=== PATIENT | female | born 1980 | race Caucasian/White ===

== ENCOUNTER 2024-12-31 10:06 | Outpatient (AMB) | payer BC, SELFPAY ==
[2024-12-31 10:26] VITALS: BP 153/103; PULSE 93; RESP 16; TEMP 35.9; O2SAT 99
--- NOTE | 2024-12-31 10:26 | AMB.GYNCLNOT ---
Vital Signs 12/31/24 10:26 Weight 62.256 kg Weight Measurement Method Standing Scale BP 153/103 H Blood Pressure Source Automatic Cuff Blood Pressure Location Left Upper Arm Position Sitting Respiration 16 Pulse 93 Pulse Source Monitor Temp 96.7 F L Temp Source Oral Pulse Oximetry (%) 99 Oxygen Delivery Method Room Air Allergies/Home Meds Allergies & Medications Allergies No Known Allergies Allergy (Verified 12/31/24 10:27) Medication Reconciliation misoprostol 200 mcg tablet 400 mcg (2 x 200 mcg) sublingual .once 1 day #2 tabs 12/31/24 [Rx] Intake Visit Data Collection New Patient or Established: New Patient (never been to [facility]) Reason for Visit:: consult for Mirena IUD removal and insert Seen by Clinical Staff ONLY (RN/MA): No Labor Expediter Required: No Do You Feel Safe at Home: Yes Authorities Contacted: N/A PCP or OBGYN visit in last 3 months: Yes Hx Now: No Are you currently on any form of Control: Yes Pain Present Currently: No Pain Scale Used: Capone-Bernal/Numerical Pain scale:: 0 Smoking Status Smoking Status: Never smoker 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 1. Little interest or pleasure in doing things: not at all 2. Feeling down, depressed, or hopeless: not at all Total score: 0 PHQ-9 3. Trouble falling or staying asleep, or sleeping too much: Not at all 4. Feeling tired or having little energy: Not at all 5. Poor appetite or overeating: Not at all 6. Feeling bad about yourself - or that you are a failure or have let yourself or your family down: Not at all 7. Trouble concentrating on things, such as reading the newspaper or watching television: Not at all 8. Moving or speaking so slowly that other people could have noticed? - Or the opposite - being so fidgety or restless that you have been moving around a lot more than usual: not at all 9. Thoughts that you would be better off or of hurting yourself in some way: Not at all Total score: 0 If you checked off any problems, how difficult have these problems made it for you to do your work, take care of things at home, or get along with other people?: not difficult at all Source: Developed by Drs. Carlo Huggins, Stephy Wallace, Melquiades Ayers and colleagues, with an educational lacie from [employer]. Depression screen completed yes Social History Living Situation History Marital Status: Lives With: Family Housing: House Tobacco History Smoking Status: Never smoker Second Hand Smoke Exposure: No Alcohol History Alcohol Intake: Never Domestic Abuse History Do You Feel Safe at Home: Yes Past Medical History Past Medical History Have you ever been diagnosed with any of the following: History of Present Illness HPI Narrative This is a 44-year-old [place] that arrives to clinic today for IUD removal and insert consult. Patient reports menarche at 16 years old. LMP 12/16/24. She reports that usually.'s are every month and last about 5 days moderate in flow. Patient has a history of using Mirena IUD for the last 8 years. She has been happy with the control method and would like to have it replaced. She reports that the last year periods have become more frequent. She has had more midcycle spotting.. She in also complains of increased weight gain in the past year and feeling fatigued. Patient has been followed up with family practice at Dr. Dominguez's office and she recently saw her provider regarding the same symptoms. Patient's family practice provider suggested upping her Zoloft to 50 mg daily. And that seems to be starting to help with her fatigue. Patient reports that she smokes 4 cigarettes a day. Patient also reports daily alcohol use. Denies drug use. Patient has a history of fatigue. Denies chronic illness. Denies COMMUNITY YOUTH SECRETARY complaints at this time. Denies PAINS. Review of Systems Review of Systems Systems Reviewed: All systems reviewed, normal except as documented Exam General Limitations: no limitations General Appearance: alert, in no apparent distress, comfortable, cooperative, healthy appearing, well developed and well groomed Head Head exam: atraumatic, normocephalic and normal inspection Chest Chest inspection: Present normal inspection and symmetric chest wall rise Resp Respiratory exam: Present normal lung sounds bilaterally Card Cardiovascular exam: Present regular rate, normal rhythm and normal heart sounds Abdominal Abdominal exam: Present soft and normal bowel sounds Psych Psychiatric exam: Present normal affect and normal mood Assessment & Plan Diagnosis / Problem List (1) Encounter for IUD removal and reinsertion: Status: Acute Plan I discussed Mirena IUD its method and side effects. I discussed the effects of progesterone only methods on menstrual cycle. I also discussed that because the Mirena has been in for 8 years, that patient is more likely to be experiencing side effects from the Mirena. Since patient is happy with Mirena IUD she was scheduled for IUD removal and insert. Patient advised to take 400 of misoprostol sublingual 24 hours before procedure. Misoprostol was ordered to patient's pharmacy. I reviewed side effects of misoprostol with patient as well. Patient will take ibuprofen prior to insert. Additional Plan Follow Up: 2 Weeks (for mirena removal and insert) Office Procedures OB Clinic LOC & Office Proc's Nursing/Assessment Patient Status: Established Patient OB Clinic Nursing Assessment: BP Monitoring, Medication Reconciliation, Update PMH in EMR and Vital Signs OB Clinic Coordination of Care: Consent,records obtained, informed consent, Education Simp Pt/Fam, Lab and Imaging orders and Staff clarify orders Established Patient Charge Established Patient Point Assignment: 90 Established Patient Point Charge: EP Level 3 (80-115)
== END 2024-12-31 10:50 | disposition home or self-care (01) ==
LOC: HODSOBC 10:06
PROVIDERS: Supervising Provider Advanced Practice Midwife; Visit Provider Advanced Practice Midwife
DX: Z30.433 Encounter for removal and reinsertion of intrauterine contraceptive device (principal)
CPT/HCPCS: 99213; G0463

== ENCOUNTER 2025-01-26 08:41 | Outpatient (AMB) | payer BC, SELFPAY ==
--- NOTE | 2025-01-26 09:01 | AMB.GYNCLNOT ---
Vital Signs 01/26/25 09:07 Height 1.68 m Height Method Stated Weight 62.709 kg Weight Measurement Method Standing Scale BMI 22.3 BP 168/99 H Blood Pressure Source Automatic Cuff Blood Pressure Location Left Upper Arm Position Sitting Respiration 16 Pulse 84 Pulse Source Monitor Temp 98.2 F Temp Source Oral Pulse Oximetry (%) 95 Oxygen Delivery Method Room Air Allergies/Home Meds Allergies & Medications Allergies No Known Allergies Allergy (Verified 01/26/25 09:09) Medication Reconciliation No Known Home Medications 01/26/25 [History Confirmed 01/26/25] Intake Visit Data Collection New Patient or Established: Established Patient (seen at [facility] within 3 years) Reason for Visit:: IUD replacement after 8 years Seen by Clinical Staff ONLY (RN/MA): No Calculus Professor Required: No Do You Feel Safe at Home: Yes Authorities Contacted: N/A PCP or OBGYN visit in last 3 months: Yes Hx Now: No Are you currently on any form of Control: Yes Last menstrual period: 01/25/25 Pain Present Currently: No Pain Scale Used: Capone-Bernal/Numerical Pain scale:: 0 Smoking Status Smoking Status: Never smoker 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 1. Little interest or pleasure in doing things: not at all 2. Feeling down, depressed, or hopeless: not at all Total score: 0 PHQ-9 3. Trouble falling or staying asleep, or sleeping too much: Not at all 4. Feeling tired or having little energy: Not at all 5. Poor appetite or overeating: Not at all 6. Feeling bad about yourself - or that you are a failure or have let yourself or your family down: Not at all 7. Trouble concentrating on things, such as reading the newspaper or watching television: Not at all 8. Moving or speaking so slowly that other people could have noticed? - Or the opposite - being so fidgety or restless that you have been moving around a lot more than usual: not at all 9. Thoughts that you would be better off or of hurting yourself in some way: Not at all Total score: 0 Source: Developed by Drs. Carlo Huggins, Stephy Wallace, Melquiades Ayers and colleagues, with an educational lacie from [employer]. Depression screen completed yes Social History Living Situation History Marital Status: Lives With: Family Housing: House Tobacco History Smoking Status: Never smoker Second Hand Smoke Exposure: No Alcohol History Alcohol Intake: Never Domestic Abuse History Do You Feel Safe at Home: Yes Past Medical History Past Medical History Have you ever been diagnosed with any of the following: History of Present Illness HPI Narrative Vinita Bernal presents for IUD replacement. She has had her current IUD for approximately 8 years, which was placed at a clinic in [place] when she lived in the [facility]. The patient reports noticing changes in the last 2-[address] years, [address] Ramirez attributes to the hormones wearing off after 5 years. The patient was initially scheduled for the IUD replacement last week but did not start her menstrual cycle as expected. She was prescribed misoprostol to help loosen the cervix, which she took as directed. However, she reports that it never worked, though Dr. Ramirez reassures her that the medication should still be helpful for today's procedure. Vinita expresses some apprehension about the IUD replacement procedure but is proceeding with it. She denies any other specific complaints or symptoms related to her reproductive health. Surgical History - IUD insertion approximately 8 years ago Medications and Supplements - Misoprostol - Taken last week to loosen the cervix for IUD removal/insertion - IUD (Intrauterine Device) - Previous IUD in place for 7-8 years - Patient noticed changes in the last 2-3 years, likely due to hormones wearing off Social History - Occupation: Patient mentions going home to do chores after the appointment Review of Systems Genitourinary: Positive for cramping during IUD removal and insertion. Exam General General Appearance: alert, in no apparent distress and healthy appearing Head Head exam: atraumatic Neck Neck exam: Present normal inspection and trachea midline Chest Chest inspection: Present normal inspection and symmetric chest wall rise External exam: Present normal external exam; Absent tenderness Neuro Neurological exam: Present oriented X3 Psych Psychiatric exam: Present normal affect and normal mood Assessment & Plan Diagnosis / Problem List (1) Encounter for replacement of intrauterine contraceptive device: Status: Acute (2) Encounter for IUD removal and reinsertion: Status: Acute (3) General counseling and advice for contraceptive management: Status: Acute Plan Vinita Bernal, female patient, presenting for IUD replacement after 8 years with her previous device. Intrauterine Device (IUD) Replacement Assessment: Patient had an IUD inserted 8 years ago in [place]. She reports noticing changes in the last 2-3 years, likely due to hormonal effects wearing off after 5 years. Misoprostol was prescribed prior to the appointment to help loosen the cervix, which the patient took last week. The cervix appeared stenotic, but the misoprostol is expected to have helped break down the stenosis. Plan: - Removed old IUD - Inserted new IUD - Informed consent obtained (procedure steps explained to patient) - Left strings approximately 2 inches long - Advised patient to return in about a month if strings are bothersome for potential trimming - Observed minimal bleeding post-procedure, which was noted as normal - Instructed patient to rest for 5 minutes post-procedure before getting up - Offered Toradol injection for pain management (patient declined) - Follow-up in 5 minutes to check on patient's status Office Procedures OB Clinic LOC & Office Proc's Nursing/Assessment Patient Status: Established Patient OB Clinic Nursing Assessment: Medication Reconciliation, Update PMH in EMR and Vital Signs OB Clinic Coordination of Care: Complex Care and Chronic Disease 1-5, Consent,records obtained, informed consent, Education Simp Pt/Fam and Staff clarify orders Miscellaneous Interventions: Pelvic no cultures Established Patient Charge Established Patient Point Assignment: 95 Established Patient Point Charge: EP Level 3 (80-115) In Clinic Procedures INSERTION OF ANY IUD DEVICE: Yes REMOVAL OF ANY IUD DEVICE: Yes DIRECTOR DISTRIBUTION: BC insert/removal Procedure Notes Consent obtained: yes-written IUD type inserted: Mirena IUD Lot and Exp: Lot#: [id number] Expiration date: 01/2027 Procedure Notes:: After obtaining informed consent, the patient was placed in dorsal lithotomy position. A bimanual exam was performed, revealing a normal-sized, anteverted uterus. A sterile speculum was inserted to visualize the cervix. The IUD strings were identified, and the Mirena IUD was gently and atraumatically removed using ring forceps. The device was inspected to confirm it was removed intact. The cervix was then cleansed with Betadine solution. The uterine depth was sounded and measured at [__] cm. A new Mirena (levonorgestrel-releasing intrauterine system, 52 mg) was loaded according to bilingual legal assistant?s instructions and inserted through the cervical canal under sterile technique. The sql ssrs developer was removed, and strings were trimmed to approximately 3 cm at the cervical os. The patient tolerated the procedure well without complication. Post-Procedure Counseling: The patient was advised she may experience cramping or light spotting over the next few days. She was instructed to monitor for signs of infection (fever, foul discharge, severe pain) or expulsion. She was counseled that contraceptive protection is immediate due to [id number] IUD placement. Follow-up to assess string location is advised in 4?6 weeks or sooner if symptoms arise. No complications noted. Patient tolerated procedure well.
[2025-01-26 09:07] VITALS: BP 168/99; PULSE 84; RESP 16; TEMP 36.8; O2SAT 95; BMI 22.3
== END 2025-01-26 09:30 | disposition home or self-care (01) ==
LOC: HODSOBC 08:41
PROVIDERS: PCP Nurse Practitioner Family; Referring Provider Nurse Practitioner Family; Supervising Provider Obstetrics & Gynecology; Visit Provider Obstetrics & Gynecology
DX: Z30.433 Encounter for removal and reinsertion of intrauterine contraceptive device (principal)
CPT/HCPCS: 58300; 58301; 99213; J7298; G0463

== ENCOUNTER → 2025-03-31 | Outpatient (CLI) | payer BC, SELFPAY ==
[2025-03-31 14:36] LABS: Basophils # (Auto) 0.0 Thou/mm3 (0.0-0.2); Basophils % (Auto) 1 % (0-2.5); Eosinophils # (Auto) 0.2 Thou/mm3 (0.0-0.5); Eosinophils % (Auto) 4 % (0-10); Hematocrit 38.9 % (36.0-46.0); Hemoglobin 13.1 g/dL (12.0-16.0); Immature Granulocytes Auto 0.01 Thou/mm3 (0.00-0.00); Lymphocytes # (Auto) 1.0 Thou/mm3 (1.0-4.8); Lymphocytes % (Auto) 21 % (10-50); Mean Corpuscular HGB Conc 33.7 g/dl (31.0-37.0); Mean Corpuscular Hemoglobin 33.2 pg (25.0-35.0); Mean Corpuscular Volume 99 fL (80-100); Monocytes # (Auto) 0.4 Thou/mm3 (0.0-0.8); Monocytes % (Auto) 8 % (0-12); Neutrophils # (Auto) 3.1 Thou/mm3 (1.8-7.7); Neutrophils % (Auto) 66 % (37-80); Nucleated Red Blood Cell # 0.00 Thou/mm3 (0.00-0.00); Nucleated Red Blood Cell % 0 /100 WBC (0); Platelet Count 176 Thou/mm3 (140-440); RDW Standard Deviation 49.0 fL (36.4-46.3); Red Blood Count 3.95 Miln/mm3 (4.00-5.20); White Blood Count 4.7 Thou/mm3 (3.6-11.0)
[2025-03-31 14:53] LABS: Glucose Estimated Average 94 mg/dL (80-131); Hemoglobin A1C 4.9 % Hgb (4.8-6.0)
[2025-03-31 15:00] LABS: Follicle Stimulating Hormone 3.91 mIU/mL (See Note)
[2025-03-31 15:01] LABS: Alanine Aminotransferase 21 U/L (10-49); Albumin, Serum 4.4 gm/dL (3.5-5.0); Albumin/Globulin Ratio 1.7 (1.2-2.2); Alkaline Phosphatase 42 U/L (46-116); Anion Gap 10 (7-16); Aspartate Amino Transferase 38 U/L (0-34); BUN/Creatinine Ratio 13 Ratio (12-20); Bilirubin,Total 0.6 mg/dL (0.3-1.2); Blood Urea Nitrogen 10 mg/dL (9-23); Calcium 9.1 mg/dL (8.3-10.6); Calcium (Corrected) 9.1 mg/dL (8.5-10.1); Carbon Dioxide 27.4 mMol/L (20.0-31.0); Cardiac Risk Estimate 2.4 RATIO (3.7-5.6); Chloride 102 mMol/L (98-107); Cholesterol 199 mg/dL (132-200); Creatinine (Component) 0.8 mg/dL (0.6-1.3); Globulin 2.6 gm/dL (2.3-3.5); Glucose 89 mg/dL (74-106); HDL Cholesterol 83 mg/dL (40-60); LDL Cholesterol,Calculated 103 mg/dL (0-130); Osmolality,Calculated 275 (275-295); Potassium 3.9 mMol/L (3.4-5.1); Sodium 139 mMol/L (136-145); Thyroid Stimulating Hormone 1.75 uIU/mL (0.55-4.78); Total Protein 7.0 gm/dL (5.7-8.2); Triglycerides 66 mg/dL (30-150); eGFR > 60 See Note
[2025-04-06 09:41] LABS: Estradiol, Ultrasensitive* 157 pg/mL; Luteinizing Hormone* 2.0 mIU/mL; Testosterone, Free,Dialysis 2.2 pg/mL (0.1-6.4); Testosterone, Total, Dialysis 24 ng/dL (2-45)
== END | disposition home or self-care (01) ==
LOC: COPL 13:52
PROVIDERS: PCP Internal Medicine; Referring Provider Internal Medicine; Visit Provider Internal Medicine
DX: N95.1 Menopausal and female climacteric states (principal); R45.86 Emotional lability; R53.83 Other fatigue; Z13.6 Encounter for screening for cardiovascular disorders; Z79.899 Other long term (current) drug therapy
CPT/HCPCS: 36415; 80053; 80061; 82670; 83001; 83002; 83036; 84402; 84403; 84443; 85025